=== PATIENT | male | born 1955 | race Hispanic/Latino ===

== ENCOUNTER → 2018-04-10 | Outpatient (CLI) | payer OTHER ==
--- NOTE | 2018-04-10 12:09 | Diagnostic Imaging Report ---
Lumbar Spine Radiographs: 5 views including obliques Sacrum: 2 views HISTORY: intervertebral disc degeneration, lumbar region COMPARISON: None available. DISCUSSION: The osseous structures are partially obscured by stool and bowel gas. Transitional lumbosacral anatomy with a right-sided L5-S1 pseudarthrosis. A 5 mm anterolisthesis of L4 on L5. No displaced fracture or compression deformity is identified. Disc Spaces: Mild degenerative changes at L4-5. Facets: Mild degenerative changes at L4-5 and moderate at L5-S1. IMPRESSION: 1. No acute radiographic abnormality. 2. Transitional lumbosacral anatomy with a right-sided L5-S1 pseudarthrosis. 3. Multilevel degenerative changes, most notably at L4-5 and L5-S1. Signed by: Dr. Luis White D.O., M.M.M. on 04/10/2018 12:05 PM
== END ==
LOC: RAD 10:46
PROVIDERS: ATTEND Nurse Practitioner Adult Health
DX: M51.36 Other intervertebral disc degeneration, lumbar region (principal)
CPT/HCPCS: 72110; 72220